=== PATIENT | female | born 1950 | race Caucasian/White ===

== ENCOUNTER 2017-06-18 16:12 | Inpatient (IN) | payer OTHER, MEDICAID ==
[~2017-06-18] VITALS: Ht 160 cm; Wt 72.7 kg
[2017-06-18 19:22] LABS: PLATELET COUNT 171 x10^3mcL (130-400)
[2017-06-18 19:29] LABS: CALCIUM 8.2 mg/dL (8.5-10.1); CARBON DIOXIDE 26.8 mmol/L (21-32); CHLORIDE SERUM 103 mmol/L (98-107); CREATININE SERUM 0.9 mg/dL (0.6-1.0); GFR1 > 60 mL/min; GLUCOSE SERUM 115 mg/dL (74-106); POTASSIUM SERUM 3.4 mmol/L (3.5-5.1); SODIUM SERUM 138 mmol/L (136-145)
[2017-06-18 19:30] LABS: RED CELL DISTRIBUTION WIDTH 14.6 % (11.5-14.5)
[2017-06-18 19:34] LABS: ALKALINE PHOSPHATASE 73 U/L (46-116); ALT/SGPT 19 U/L (14-59); AST/SGOT 21 U/L (15-37); BILIRUBIN TOTAL 0.72 mg/dL (0.20-1.00); LIPASE 92 IU/L (73-393); TOTAL PROTEIN, SERUM 6.9 g/dL (6.4-8.2)
[2017-06-18 19:35] LABS: ALBUMIN 2.4 g/dL (3.4-5.0)
[2017-06-18] MEDS ORDERED: GLUCOPHAGE XR500 MG PO (20:08)
[2017-06-18] MEDS ORDERED: NOR10 PO (20:08)
[2017-06-18 20:28] LABS: CHOLESTEROL/HDL RATIO 2.8; MAGNESIUM 1.7 mg/dL (1.8-2.4); PHOSPHOROUS 1.6 mg/dL (2.5-4.9)
[2017-06-18 20:35] LABS: BAND NEUTROPHIL 0 % (0-10); BASOPHIL 0 % (0-2); MONOCYTE 5 % (0-7); MYELOCYTE 1 % (0-2); SEGMENTED NEUTROPHILS 86 % (37-75)
[2017-06-18 20:36] LABS: PLATELET MORPHOLOGY PLATELETS NORMAL; rbc morphology (normal/abnorm) NORMAL (NORMAL)
[2017-06-18 20:37] LABS: T3 TOTAL 0.66 ng/mL
[2017-06-18 21:07] VITALS: BP 119/47
[2017-06-18 21:23] LABS: FREE T4 1.25 ng/dL (0.76-1.46); FREE THYROXINE INDEX 2.7 ug/dL (1.4-4.5); T4(THYROXINE) 7.2 ug/dL (4.7-13.3)
[2017-06-18 21:32] VITALS: BP 119/47
[2017-06-18 21:57] LABS: UA SPECIFIC GRAVITY 1.015 (1.005-1.035); microscopic required? YES; urine erythrocyte 3+ (NEGATIVE)
[2017-06-18 22:05] LABS: AMPHETAMINE QUAL UR NONE DETECTED (NEG <=1000)
[2017-06-19 05:47] VITALS: BP 124/53
[2017-06-19 07:23] LABS: BASOPHIL % 0.1 % (0-2); PLATELET COUNT 182 x10^3mcL (130-400); RED CELL DISTRIBUTION WIDTH 14.5 % (11.5-14.5)
[2017-06-19 07:55] LABS: CALCIUM 8.6 mg/dL (8.5-10.1); CARBON DIOXIDE 24.3 mmol/L (21-32); CHLORIDE SERUM 104 mmol/L (98-107); CREATININE SERUM 0.8 mg/dL (0.6-1.0); GFR1 > 60 mL/min; GLUCOSE SERUM 89 mg/dL (74-106); MAGNESIUM 2.5 mg/dL (1.8-2.4); POTASSIUM SERUM 3.8 mmol/L (3.5-5.1); SODIUM SERUM 137 mmol/L (136-145)
[2017-06-19 09:08] VITALS: BP 91/41
[2017-06-19 09:09] VITALS: BP 141/62
[2017-06-19 17:42] VITALS: BP 99/63
[2017-06-19 21:11] VITALS: BP 129/60
[2017-06-20 05:31] VITALS: BP 112/62
[2017-06-20 08:05] LABS: ALBUMIN 1.9 g/dL (3.4-5.0); ALKALINE PHOSPHATASE 120 U/L (46-116); ALT/SGPT 69 U/L (14-59); AST/SGOT 78 U/L (15-37); BILIRUBIN TOTAL 0.8 mg/dL (0.20-1.00); CALCIUM 8.1 mg/dL (8.5-10.1); CHLORIDE SERUM 106 mmol/L (98-107); CREATININE SERUM 0.9 mg/dL (0.6-1.0); GFR1 > 60 mL/min; GLUCOSE SERUM 97 mg/dL (74-106); MAGNESIUM 2.1 mg/dL (1.8-2.4); PHOSPHOROUS 2.9 mg/dL (2.5-4.9); POTASSIUM SERUM 3.7 mmol/L (3.5-5.1); SODIUM SERUM 141 mmol/L (136-145); TOTAL PROTEIN, SERUM 6.5 g/dL (6.4-8.2)
[2017-06-20 09:15] VITALS: BP 118/49
[2017-06-20 17:26] VITALS: BP 143/55
[2017-06-20 20:58] VITALS: BP 145/58
[2017-06-21 05:37] VITALS: BP 154/63
[2017-06-21 06:42] LABS: BASOPHIL % 0.4 % (0-2); PLATELET COUNT 213 x10^3mcL (130-400)
[2017-06-21 07:06] LABS: ALKALINE PHOSPHATASE 130 U/L (46-116); ALT/SGPT 49 U/L (14-59); AST/SGOT 53 U/L (15-37); BILIRUBIN TOTAL 0.55 mg/dL (0.20-1.00); CALCIUM 8.6 mg/dL (8.5-10.1); CARBON DIOXIDE 24.9 mmol/L (21-32); CHLORIDE SERUM 105 mmol/L (98-107); CREATININE SERUM 0.8 mg/dL (0.6-1.0); GFR1 > 60 mL/min; GLUCOSE SERUM 112 mg/dL (74-106); POTASSIUM SERUM 3.3 mmol/L (3.5-5.1); SODIUM SERUM 141 mmol/L (136-145); TOTAL PROTEIN, SERUM 6.8 g/dL (6.4-8.2)
[2017-06-21 07:07] LABS: ALBUMIN 2.1 g/dL (3.4-5.0)
[2017-06-21 07:39] LABS: RED CELL DISTRIBUTION WIDTH 15.1 % (11.5-14.5)
[2017-06-21 09:54] VITALS: BP 149/63
[2017-06-21 18:48] VITALS: BP 155/57
[2017-06-21 21:10] VITALS: BP 131/71
[2017-06-22 05:39] VITALS: BP 166/74
[2017-06-22 06:27] LABS: CALCIUM 8.8 mg/dL (8.5-10.1); CARBON DIOXIDE 29.4 mmol/L (21-32); CHLORIDE SERUM 103 mmol/L (98-107); CREATININE SERUM 0.7 mg/dL (0.6-1.0); GFR1 > 60 mL/min; GLUCOSE SERUM 94 mg/dL (74-106); POTASSIUM SERUM 3.1 mmol/L (3.5-5.1); SODIUM SERUM 142 mmol/L (136-145)
[2017-06-22 06:52] LABS: BASOPHIL % 0.2 % (0-2); PLATELET COUNT 256 x10^3mcL (130-400); RED CELL DISTRIBUTION WIDTH 15.6 % (11.5-14.5)
[2017-06-22] MEDS ORDERED: ONDANSETRON4 M3 PO (09:46)
[2017-06-22] MEDS ORDERED: COLACE100 MG PO (09:46)
[2017-06-22] MEDS ORDERED: NORCO1 TA1 PO ×2 (09:46→09:49)
[2017-06-22] MEDS ORDERED: NATURAL IRON65 MG PO (09:47)
[2017-06-22] MEDS ORDERED: VITAMIN C PURE500 MG PO (09:47)
[2017-06-22] MEDS ORDERED: POTASSIUM CHLO20 ME1 PO (09:48)
[2017-06-22] MEDS ORDERED: [UNRECOGNIZED DRUG - OTHER] PO (09:54)
[2017-06-22 10:11] VITALS: BP 159/62
[2017-06-22] MEDS ORDERED: LEVOFLOXACIN500 M1 PO (12:32)
[2017-06-22] MEDS ORDERED: FLA500 PO (12:32)
[2017-06-22] MEDS ORDERED: LAC PO (12:33)
[2017-06-22 14:48] VITALS: BP 159/62
== END 2017-06-22 16:25 | disposition home or self-care (01) | DRG 417 ==
LOC: ED 16:12 → MU 19:56 → DU 19:56 → MU 06-19 07:49
PROVIDERS: Emergency Medicine; Family Medicine; Surgery
PROC: 0FT44ZZ Resection of Gallbladder, Percutaneous Endoscopic Approach (ICD-10-PCS; principal; 2017-06-19 10:00)
DX: K80.12 Calculus of gallbladder with acute and chronic cholecystitis without obstruction (principal); E43 Unspecified severe protein-calorie malnutrition; N17.0 Acute kidney failure with tubular necrosis; E83.42 Hypomagnesemia; E83.39 Other disorders of phosphorus metabolism; R73.03 Prediabetes; D64.9 Anemia, unspecified; I10 Essential (primary) hypertension
CPT/HCPCS: 83880; 84439; 87046; 87046-59; 94150; J0330; J1170; J1885; J2175; J2250; J2405; J2543; J2704; J2710; J3010; J3475; J3480; J3490; J7030; J7120; Q0092